=== PATIENT | male | born 1985 | race Caucasian/White ===

== ENCOUNTER → 2019-01-06 18:12 | Outpatient (CLI) | payer MEDICAID, SELFPAY ==
[2019-01-06 18:55] LABS: Basophils # 0.1 K/mm3 (0-0.2); Basophils % 1.1 % (0.1-2.0); Eosinophils # 0.1 K/mm3 (0.0-0.4); Hematocrit 46.3 % (42.0-52.0); Hemoglobin 16.6 g/dL (14.1-18.0); Lymphocytes # 1.4 K/mm3 (0.7-4.5); Lymphocytes % 21.5 % (10-50); Mean Corpuscular HGB Conc 35.8 g/dL (31.8-35.4); Mean Corpuscular Hemoglobin 31.7 pg (27.0-31.2); Mean Corpuscular Volume 88.6 fl (80-94); Mean Platelet Volume 9.7 fl (7.4-10.4); Monocytes # 0.4 K/mm3 (0.1-1.0); Monocytes % 5.4 % (1.7-9.3); Neutrophils # 4.5 K/mm3 (1.8-7.8); Neutrophils % 69.8 % (37.0-80.0); Platelet Count 223 K/mm3 (142-424); Red Blood Count 5.23 M/mm3 (4.60-6.20); Red Cell Distribution Width 13.1 % (11.5-17.5); White Blood Count 6.5 K/mm3 (4.8-10.8)
[2019-01-06 19:12] LABS: Alanine Aminotransferase 47 U/L (12-78); Albumin Level 4.3 gm/dL (3.4-5.0); Albumin/Globulin Ratio 1.5 (1.1-1.8); Alkaline Phosphatase 64 U/L (46-116); Anion Gap 16.4 mEq/L (5-15); Aspartate Amino Transferase 25 U/L (15-37); Blood Urea Nitrogen 14 mg/dL (7-18); Carbon Dioxide 23 mmol/L (21.0-32.0); Chloride 106 mmol/L (98-107); Chol/HDL Ratio 3.6 (1-3.5); Cholesterol 132 mg/dL (140-200); Creatinine,Serum 0.87 mg/dL (0.70-1.30); Estimated Glomerular Filt Rate 100 ml/min (>60); Free T4 (Free Thyroxine) 0.87 ng/dl (0.76-1.46); GFR (African American) 122 ML/MIN (>60); Globulin 2.8 gm/dl (1.3-3.2); Glucose 88 mg/dL (74-106); HDL Cholesterol 37 mg/dL (27-67); LDL Cholesterol 65 mg/dL (0-130); Potassium 4.4 mmoL/L (3.5-5.1); Sodium 141 mmol/L (136-145); Thyroid Stimulating Hormone 1.96 uIU/ml (0.358-3.740); Total Protein,Serum 7.1 gm/dL (6.4-8.2); Triglycerides 148 mg/dL (30-200); VLDL Cholesterol 30 mg/dL (0-40)
[2019-01-08 08:32] LABS: Vitamin D 25 Hydroxy 37.7 ng/mL (30.0-100.0)
[2019-01-08 14:08] LABS: Folate 9.3 ng/mL (>3.0)
[2019-01-08 14:08] LABS: Vitamin B12 525 pg/mL (232-1245)
== END ==
PROVIDERS: Visit Provider Nurse Practitioner Family
DX: L08.9 Local infection of the skin and subcutaneous tissue, unspecified (principal); S60.419A Abrasion of unspecified finger, initial encounter; R53.83 Other fatigue; M62.838 Other muscle spasm
CPT/HCPCS: 80053; 80061; 82607; 82652; 82746; 84439; 84443; 85025; 87070; 87077; 87186; 87205

== ENCOUNTER → 2019-02-09 21:12 | Outpatient (CLI) | payer MEDICAID, SELFPAY ==
--- NOTE | 2019-02-09 21:22 | XR_ITS ---
EXAM: XR lumbar spine 2-3V HISTORY: ITS.REASON: pain ORDERING PHYSICIAN: Natalya Jiménez APRN PATIENT AGE: 33 years COMPARISON: None FINDINGS: Normal alignment. No fracture or dislocation. No lytic or blastic change. There is mild degenerative disc disease at L5-S1 with retrolisthesis of L5 of approximately 3 mm. There is spina bifida occult of S1 IMPRESSION: Mild degenerative disc disease L5-S1 with mild retrolisthesis of L5
== END ==
PROVIDERS: PCP Nurse Practitioner Family; Visit Provider Nurse Practitioner Family
DX: M54.5 Low back pain (principal)
CPT/HCPCS: 72100

== ENCOUNTER 2019-03-20 08:00 | Outpatient (RCR) | payer MEDICAID, SELFPAY ==
--- NOTE | 2019-02-24 08:46 | HMH.PTOPEV ---
PT Outpatient Evaluation Rehab PT Outpatient Evaluation Start: 02/24/19 08:32 Freq: Status: Active Protocol: Document 02/24/19 08:36 GARRETT (Rec: 02/24/19 08:45 GARRETT [id number]) Electronically Signed By Jomar Hughes, PT 02/24/19 08:36 Outpatient Therapy Subjective History Subjective History Pt reports h/o chronic B LE radicular/neurological s/s for ~10yrs, with increased intensity and frequency over the last ~1yr. Pt reports R>L LE s/s including pain, N&T, and mm spasms. Pt reports no h /o LBP, and LE s/s increase with prolonged standing. Xray- lumbar-retrolisthesis L5-S1 Chief Complaint Pain,Paresthesia Symptom Type Ache,Sharp,Dull,Stabbing, Burning,Numbness,Tingling Symptoms Relieved By Rest/Positioning Symptoms Aggravated By Standing Prior Functional Limitations Standing Current Functional Limitations Driving,Sleeping,Standing Symptom Description Intermittent Level of pain today (0-10) 0 Pain scale - at its best (0-10) 0 Pain scale - at its worst (0-10) 9 Lumbopelvic Eval Posture Thoracic Spine Posture Standing Position Neutral Lumbar Spine Posture Standing Position Neutral Assistive device Assistive Devices None / NA Gait Observation General Gait Pattern Observation No Deviations/Normal Palapation tenderness left buttock tenderness Yes: 1-2/4 right buttock tenderness Yes: 2-3/4 Lumbar/Sacral Palpation Findings Tenderness Range of Motion Lumbar Spine Active Flexion Range of 0-70 Motion (degrees) Lumbar Spine Active Extension Range of 0-30 Motion (degrees) Left Lumbar Spine Lateral Flexion Active 0-35 Range of Motion (degrees) Right Lumbar Spine Lateral Flexion 0-35 Active Range of Motion (degrees) Manual Muscle Test Bilateral Knee Extension Strength Grade 5 Normal Knee Flexion Strength Grade 5 Normal Hip Flexion Strength Grade 5 Normal Extensor Hallucis Longus Strength Grade 5 Normal Ankle Dorsiflexion Strength Grade 5 Normal Gastronemius/Soleus Strength Grade 5 Normal DTR Rt Patellar 2+ Lt Patellar 2+ Rt Gastroc/Soleus 0 Lt Gastroc/Soleus 1+ Special Tests Hip Piriformis Test Positive Left,Positive Right Sciatic Nerve Tension Test Positive Left,Positive Right Reverse Sciatic Nerve Tension Test Positive Left,Positive Right Sacroiliac Joint Compression Test Negative Left,Negative Right Outpatient Therapy Assessment Impair
== END 2019-03-20 08:05 | disposition home or self-care (01) ==
LOC: PT 08:00
PROVIDERS: Visit Provider Nurse Practitioner Family
DX: M51.36 Other intervertebral disc degeneration, lumbar region (principal); M43.10 Spondylolisthesis, site unspecified; Q76.0 Spina bifida occulta
CPT/HCPCS: 97110; 97163

== ENCOUNTER → 2020-07-13 16:12 | Outpatient (CLI) | payer OTHER, SELFPAY ==
--- NOTE | 2020-07-13 16:12 | MR_ITS ---
PROCEDURE: MR LUMBAR SPINE WO CON CLINICAL INDICATION: BLE Burning BILATERAL LEG PAIN WITH NUMBNESS AND TINGLING. RT LEG IS WORSE. X10YRS. COMPARISON: CR Lumbar spine from 02/09/2019 TECHNIQUE: Standard multiplanar multiecho sequences are performed without contrast. 3-D MIP and myelographic images are also rendered and reviewed FINDINGS: There is normal alignment. The spinal cord ends at the T12-L1 level. The L1-L2: Unremarkable. L2-L3: Unremarkable. L3-L4: Mild facet and ligamentum hypertrophy with mild bilateral foraminal narrowing. L4-5: Mild facet and ligamentum hypertrophy with mild bilateral foraminal narrowing. L5-S1: Degenerative disc disease with bulging disc along with facet and ligamentum hypertrophy resulting in moderate bilateral foraminal narrowing. The disc bulge is slightly eccentric toward the right. No extruded herniated disc or canal stenosis. IMPRESSION: 1. L3-L4: Mild facet and ligamentum hypertrophy with mild bilateral foraminal narrowing. 2. L4-5: Mild facet and ligamentum hypertrophy with mild bilateral foraminal narrowing. 3. L5-S1: Degenerative disc disease with bulging disc along with facet and ligamentum hypertrophy resulting in moderate bilateral foraminal narrowing. The disc bulge is slightly eccentric toward the right. 4. No extruded herniated disc or canal stenosis. Dictated by: Jorge Smith MD 07/15/2020 12:14 Jorge Smith MD in [place] 07/15/2020 12:14
== END ==
PROVIDERS: PCP Nurse Practitioner Family; Visit Provider Nurse Practitioner Family
DX: G57.93 Unspecified mononeuropathy of bilateral lower limbs (principal)
CPT/HCPCS: 72148; 76376

== ENCOUNTER → 2020-11-21 16:46 | Outpatient (CLI) | payer OTHER, SELFPAY ==
--- NOTE | 2020-11-21 16:49 | MR_ITS ---
PROCEDURE: MR CERVICAL SPINE WO CON CLINICAL INDICATION: LOWER EXTREMITY PAIN NUMBNESS AND TINGLING Pt c/o lower extremity pain, numbness, and tingling that is worse on the rt. COMPARISON: No exams were available for comparison TECHNIQUE: Standard multiplanar multiecho sequences are performed without contrast. 3-D MIP and myelographic images are also rendered and reviewed FINDINGS: There is normal alignment. The craniocervical junction has an unremarkable appearance. C2-C3: Unremarkable. C3-C4: Unremarkable. C4-C5: Unremarkable. C5-C6: Unremarkable. C6-C7: Minimal disc desiccation. There is a small left paracentral disc protrusion causing mild left lateral recess and foraminal narrowing. There is mild impingement upon the exiting C6 nerve root. C7-T1: Unremarkable. IMPRESSION: There is a small left paracentral disc protrusion at C6-C7 causing mild left lateral recess and foraminal narrowing with mild impingement upon the exiting C6 nerve root Dictated by: Jorge Smith MD 11/22/2020 13:10 Jorge Smith MD in [place] 11/22/2020 13:10
--- NOTE | 2020-11-21 16:49 | MR_ITS ---
PROCEDURE: MR THORACIC SPINE WO CON CLINICAL INDICATION: BILATERAL LOWER EXTREMITY PAIN NUMBNESS AND TINGLING Pt c/o lower extremity pain, numbness, and tingling that is worse on the rt. Pt denies any injury or trauma and states he has been dealing with this for 8 years. COMPARISON: MR MR CERVICAL SPINE WO CON from 11/21/2020 TECHNIQUE: Routine multiplanar multi echo sequences are performed without gadolinium enhancement. FINDINGS: There is normal alignment. No acute fracture or dislocation is evident. No lytic or blastic change. There is mild degenerative disc disease at T7-T8 with a small right paracentral disc protrusion. No extruded herniated disc canal stenosis or other significant anomalies evident. IMPRESSION: Mild degenerative disc disease with small right paracentral disc protrusion at T7-T8 without impingement Dictated by: Jorge Smith MD 11/22/2020 13:23 Jorge Smith MD in [place] 11/22/2020 13:23
== END ==
PROVIDERS: PCP Nurse Practitioner Family; Visit Provider Neurological Surgery
DX: M79.606 Pain in leg, unspecified (principal); R29.2 Abnormal reflex
CPT/HCPCS: 72141; 72146; 76376

== ENCOUNTER → 2021-08-22 08:05 | Outpatient (CLI) | payer OTHER, SELFPAY | PROVIDERS: PCP Nurse Practitioner Family; Visit Provider Nurse Practitioner | DX: Z20.822 Contact with and (suspected) exposure to COVID-19 (principal) | CPT/HCPCS: C9803; U0003; U0005 ==

== ENCOUNTER → 2021-09-01 16:17 | Outpatient (CLI) | payer OTHER, SELFPAY | PROVIDERS: Visit Provider Nurse Practitioner | DX: U07.1 COVID-19 (principal) | CPT/HCPCS: C9803; U0003; U0005 ==